=== PATIENT | female | born 1990 | race Caucasian/White ===

== ENCOUNTER → 2017-07-27 | Outpatient (CLI) | payer OTHER ==
--- NOTE | 2017-07-27 08:38 | ST Modified Barium Swallow ---
Recommendation - Recommendations Recommendations: 1. Continue current diet. 2. Alternate bites & sips for dry or sticky foods. 3. Consider referral to GI to assess for esophageal dysphagia due to report of sticking sensation lower than clavicular notch. Medical Diagnoses - Medical Diagnoses Medical Diagnosis Description & ICD-10 Code(s): Muscular Dystrophy Other Medical Diagnoses/Co-Morbidities: . - ICD-10 Tx Diagnosis Coding (1) Dysphagia, pharyngeal ICD-10 Code(s): R13.13 - DYSPHAGIA, PHARYNGEAL PHASE ST Modified Barium Swallow - General Date: 07/27/17 Referring Physician: Sunil Sanders MD Risks/Precautions: None Date of Onset: 11/06/15 - diagnosed last year with muscular dystrophy Reason for Referral: MBSS - History History obtained from: Patient -: Medical - Patient reports symptoms of dysphagia mainly on dry foods such as breads. Does drink water with drier take off tender foods like crackers. Patient endorses coughing & choking only with "really dry foods". Reports able to take pills without difficulty. Patient reports previous MBSS performed in [place] with "abnormal" findings - reports residuals. Medications: Modafinil. Allergies: NKA. - Functional Status Prior Functional Status: INDEPENDENT: feeding Current Functional Limitations: feeding - Subjective Patient/caregiver goal(s): safe swallow Cognitive-Linguistic Function: WNL Speech Intelligibility: WNL Current Nutritional Means: PO Current PO diet: Regular Current symptoms: c/o Globus sensation Pain: 0/5 - Objective Assessment: Upright, Left Lateral - Food Trials Used Food trials used: Thin liquids, Pureed, Regular The patient: Was Able to Self Feed, via cup, via spoon, via straw - Oral-Motor Skills Dentition: Full Velo-pharyngeal function: Not assessed Laryngeal Function: clear voicing - Assessment Oral prep: Normal Labial closure: Adequate Leakage: None Mastication: Adequate Lingual Movement: Normal Oral stage: Normal for this Procedure - Pharyngeal Stage Initiation of Pharyngeal Stage Reflex: Normal Decreased laryngeal elevation: No Reduced Velopharyngeal Closure: no Reduced pressure generation: No reduced tongue-based retraction: No Pre-swallow pooling in valleculae: None Pre-Swallow pooling in pyriforms: None Reduced Thyro-Hyoid approximation: No Reduced epiglottic excursion: No Reduced pharyngeal peristalsis/contraction: No Post-swallow residulas vallecular: None - no residuals to possible trace residuals - appears to be WNL for barium paste in cracker Post-Swallow residuals in pyriforms: None Reduced Cricopharyngeal opening: No - Fall Risk Assessment Medications/Conditions that increase fall risks include: Antidepressants, sedatives, anti-arrhythmic, diuretic, benzodiazipenes, neuroleptics. BP regulation problems, cardiac problems, balance or gait deficits, neurological problems. Is patient considered at risk for falls: no Fall Risk Actions Taken: No action needed - Behavioral Observations During evaluation process patient: was pleasant, was cooperative, provided medical history - Treatment / Educational Needs: Treatment/Education Needs: Treatment consisted of patient education on the role of the Speech Pathologist. Patient's plan of care and golas were communicated as well as scheduling and attendance policies. Recommendations for initial home program were shared. Patient demonstrated understanding and verbalized agreement. Initial home program recommendations: Recommend alternate bites & sips for dry foods. No speech therapy is indicated at this time but did educate patient on signs & symptoms of dysphagia (coughing, choking, increased sticking sensation, sticking that did not clear with liquid wash) that would warrant re-assessment. - Impression/Summary Laryngeal Penetration: No Tracheal Aspiration: no Patient presents with: Normal swallow at eval - swallow is safe & effective for all consistencies trialed Risk of Aspiration: Minimal Risk of nutritional compromise: Mild - Recommendations Solid diet recommendations: Regular Liquid Diet Modification: Thin Pt/Family education and followup with MD: Yes Dysphagia therapy with CIRCULAR KNITTER HELPER: no Recommended techniques: Alternate Bites/Sips Supervision: Independent Information, Precautions and Recommendations: Patient (Verbal) - Time Total Time: 15 - Plan of Care Summary: 1. Continue current diet - regular solids & thin liquids. 2. Alternate bites & sips for dry or sticky foods. 3. Physician may consider referral to GI to assess for esophageal dysphagia due to report of sticking sensation lower than clavicular notch. 4. No skilled speech therapy interventions are indicated at this time - treatment is not recommended. Patient demonstrates safe & effective pharyngeal swallow. Patient to follow-up with referring physician: Yes POC Procedures/Codes: MBSS (52498) Strategies to optimize patient understanding include:: ongoing assessment of educational needs, implementation of educational strategies, and re-education. - - -: Thank you for the opportunity to work with this patient and his/her family. Should you have any questions about this patient's plan or progress, I can be reached at [phone]. Charge G Code? - - -: No
--- NOTE | 2017-07-28 17:09 | RADIOLOGY REPORT (SQ) ---
EXAM DESCRIPTION: JASON SWALLOW COMPLETED DATE/TIME: 07/27/2017 8:20 am REASON FOR STUDY: MYOTONIC MUSCULAR DYSTROPHY COMPARISON: None. TECHNIQUE: Videofluoroscopic swallowing examination was performed in conjunction with speech patholo gy. Videofluoroscopic imaging was obtained and reviewed and these are the findings: RADIATION DOSE: 37 seconds of fluoroscopy was used. 1 image saved to PACS. LIMITATIONS: None FINDINGS: The patient was brought into the fluoro room and placed upright on a modified barium swall ow chair. The patient was then given multiple consistencies mixed with barium to swallow under live fluoroscopic video guidance. According to the Speech Pathologist there was no penetration or aspirat ion. IMPRESSION: NO EVIDENCE OF PENETRATION OR ASPIRATION.PLEASE SEE SPEECH PATHOLOGIST REPORT FOR OTHER FINDINGS AND RECOMMENDATIONS. COMMENT: Quality ID [id number]: Final reports for procedures using fluoroscopy that document radiation exp osure indices, or exposure time and number of fluorographic images (if radiation exposure indices are not available) TECHNICAL DOCUMENTATION: JOB ID: [id number] [employer]- All Rights Reserved
== END ==
LOC: RAD 07:39
PROVIDERS: ATTEND Internal Medicine
DX: G71.0 Muscular dystrophy (principal); R13.10 Dysphagia, unspecified
CPT/HCPCS: 74230